=== PATIENT | male | born 1955 | race Caucasian/White ===

== ENCOUNTER 2018-01-08 09:28 | Emergency (ER) | payer MEDICAID ==
[~2018-01-08] VITALS: Ht 172.7 cm; Wt 99.8 kg
[~2018-01-08 09:28] MED LIST: HYDR12.55 PO; METH5TAB70 PO; METO50TA7 PO; NAPR-688 PO; OMEG1CAP8 PO; PRAV20TA PO
[2018-01-08 09:37] VITALS: BP_SYST 156
--- NOTE | 2018-01-08 09:43 | NUR ---
tPatient triaged and placed in waiting room. VSS and patient appears in no acute distress at this time. Accompanied by family, awaiting available bed, and MD notified of need for MSE.
--- NOTE | 2018-01-08 10:08 | NUR ---
Pt to bed 7
--- NOTE | 2018-01-08 10:08 | NUR ---
Pt c/o left knee pain x 1 week that radiates to calf. Pt able to move leg and knee without difficulty, just c/o pain per weight bearing. Denies trauma or recent injury, no deformity noted.
--- NOTE | 2018-01-08 10:40 | NUR ---
Dr. Evans at bedside for evaluation
[2018-01-08] MEDS ORDERED: KETOROLAC TROMETHAMINE 30 MG VIAL IM ONE (11:00)
--- NOTE | 2018-01-08 11:37 | NUR ---
Ultrasound at bedside
[2018-01-08 12:09] LABS: BASOPHILS % (AUTO) 0.7 % (0.0-2.0); EOSINOPHILS # (AUTO) 0.1 K/uL (0.0-0.4); EOSINOPHILS % (AUTO) 0.8 % (0.0-4.0); HEMATOCRIT 32.8 % (36-54); HEMOGLOBIN 11.3 g/dL (14.0-18.0); LYMPHOCYTES # (AUTO) 1.1 K/uL (1.0-5.5); LYMPHOCYTES % (AUTO) 15.5 % (20.5-51.5); MEAN CORPUSCULAR HEMOGLOBIN 30 pg (27-31); MEAN CORPUSCULAR HGB CONC 35 % (32-36); MEAN CORPUSCULAR VOLUME 87 fL (79.0-98.0); MONOCYTES # (AUTO) 0.4 K/uL (0.0-1.0); MONOCYTES % (AUTO) 6.3 % (1.7-9.3); NEUTROPHILS # (AUTO) 5.3 K/uL (1.8-7.7); NEUTROPHILS % (AUTO) 76.7 % (40.0-70.0); PLATELET COUNT (AUTO) 134 K/uL (130-430); RED BLOOD CELL COUNT(AUTO) 3.77 MIL/uL (4.2-6.2); RED CELL DISTRIBUTION WIDTH 12.9 % (9.0-15.0); WHITE BLOOD COUNT (AUTO) 6.9 K/uL (4.8-10.8)
--- NOTE | 2018-01-08 12:30 | NUR ---
No needs verbalized at this time.
[2018-01-08 12:56] LABS: CALCIUM 9.2 mg/dL (8.4-11.0); CREATININE 0.85 mg/dL (0.55-1.30); POTASSIUM 3.7 mmol/L (3.5-5.1)
[2018-01-08 13:00] LABS: ALBUMIN 3.4 g/dL (3.4-4.8); TOTAL BILIRUBIN 0.6 mg/dL (0.0-1.0)
--- NOTE | 2018-01-08 13:16 | NUR ---
Pt refused crutches. States that he will use his cane.
[2018-01-08 13:32] VITALS: BP_SYST 128
--- NOTE | 2018-01-08 13:32 | NUR ---
Patient given written and verbal discharge instructions and verbalizes understanding. ER MD discussed with patient the results and treatment provided. Patient in stable condition. ID arm band removed. Rx of Tramadol given. Patient educated on pain management and to follow up with PMD. Pain Scale 1/10. Opportunity for questions provided and answered. Medication side effect fact sheet provided.
== END 2018-01-08 13:32 | disposition home or self-care (01) ==
LOC: SED 09:28
DX: S86.912A Strain of unspecified muscle(s) and tendon(s) at lower leg level, left leg, initial encounter (principal); I10 Essential (primary) hypertension; E78.00 Pure hypercholesterolemia, unspecified; Z79.899 Other long term (current) drug therapy; X58.XXXA Exposure to other specified factors, initial encounter; Y93.89 Activity, other specified; Y92.89 Other specified places as the place of occurrence of the external cause; Y99.8 Other external cause status
CPT/HCPCS: 36415; 73564; 80053; 84550; 85025; 93971; 96372; 99285; J1885

== ENCOUNTER 2018-02-23 11:48 | Emergency (ER) | payer MEDICAID ==
[~2018-02-23] VITALS: Ht 182.9 cm; Wt 83.5 kg
[~2018-02-23 11:48] MED LIST changes: +FISH OIL 1,0001 EAC4 PO; -OMEG1CAP8 PO
[2018-02-23 12:10] VITALS: BP_SYST 116
[2018-02-23 12:38] LABS: BASOPHILS % (AUTO) 0.7 % (0.0-2.0); EOSINOPHILS % (AUTO) 0.4 % (0.0-4.0); HEMATOCRIT 33.7 % (36-54); HEMOGLOBIN 11.6 g/dL (14.0-18.0); LYMPHOCYTES # (AUTO) 0.7 K/uL (1.0-5.5); LYMPHOCYTES % (AUTO) 12.3 % (20.5-51.5); MEAN CORPUSCULAR HEMOGLOBIN 29 pg (27-31); MEAN CORPUSCULAR HGB CONC 34 % (32-36); MEAN CORPUSCULAR VOLUME 84 fL (79.0-98.0); MONOCYTES # (AUTO) 0.5 K/uL (0.0-1.0); MONOCYTES % (AUTO) 8.9 % (1.7-9.3); NEUTROPHILS # (AUTO) 4.7 K/uL (1.8-7.7); NEUTROPHILS % (AUTO) 77.7 % (40.0-70.0); RED CELL DISTRIBUTION WIDTH 14.5 % (9.0-15.0); WHITE BLOOD COUNT (AUTO) 5.9 K/uL (4.8-10.8)
[2018-02-23] MEDS ORDERED: NACL 0.9% 1,000 ML IV ONE ×3 (12:45→15:00)
[2018-02-23 12:55] LABS: ANION GAP 8 (5-15); CALCIUM 9.2 mg/dL (8.4-11.0); CHLORIDE 90 mmol/L (98-107); CREATININE 1.52 mg/dL (0.55-1.30); POTASSIUM 3.8 mmol/L (3.5-5.1); SODIUM SERUM 125 mmol/L (136-145); UREA NITROGEN, BLOOD 27 mg/dL (8-21)
[2018-02-23 12:59] LABS: ALANINE AMINOTRANSFERASE 18 U/L (12-78); ALBUMIN 3.1 g/dL (3.4-4.8); ASPARTATE AMINOTRANSFERASE 13 U/L (10-37); TOTAL BILIRUBIN 0.7 mg/dL (0.0-1.0)
[2018-02-23 13:17] LABS: GLUCOSE 749 mg/dL (70-99)
[2018-02-23 13:18] LABS: GFR AFRICAN AMERICAN 59 mL/min (>90)
[2018-02-23 13:29] LABS: PLATELET COUNT (AUTO) 93 K/uL (130-430)
[2018-02-23] MEDS ORDERED: INSULIN REGULAR, HUMAN 10 UNITS/0.1 ML INJ IVP ONE ×2 (13:45→15:00)
[2018-02-23] MEDS ORDERED: CLOP300T2 PO (13:59)
[2018-02-23] MEDS ORDERED: METH5TAB70 PO (13:59)
[2018-02-23] MEDS ORDERED: LIP40 PO (13:59)
[2018-02-23] MEDS ORDERED: HYDR12.585 PO (13:59)
[2018-02-23] MEDS ORDERED: ASA81 PO (13:59)
[2018-02-23 16:40] VITALS: BP_SYST 122
== END 2018-02-23 16:40 | disposition home or self-care (01) ==
LOC: SED 11:48
DX: E11.65 Type 2 diabetes mellitus with hyperglycemia (principal); R63.0 Anorexia; M54.2 Cervicalgia; I10 Essential (primary) hypertension; Z79.899 Other long term (current) drug therapy
CPT/HCPCS: 36415; 71045; 80053; 82550; 83880; 84484; 85025; 93005; 96361; 96374; 96376; 99285; J7030; J1815

== ENCOUNTER 2018-03-02 20:36 | Inpatient (IN) | payer MEDICAID ==
[~2018-03-02] VITALS: Ht 157.5 cm; Wt 89.8 kg
[~2018-03-02 20:36] MED LIST changes: +ASA81 PO; +CLOP300T2 PO; +HYDR12.585 PO; +LIP40 PO
[2018-03-02 20:45] VITALS: BP_SYST 112
[2018-03-02] MEDS ORDERED: NACL 0.9% 1,000 ML IV ONE ×3 (21:00→22:30)
[2018-03-02] MEDS ORDERED: ACETAMINOPHEN 500 MG TABLET PO ONE (21:00)
[2018-03-02 21:23] LABS: BASOPHILS % (AUTO) 0.3 % (0.0-2.0); EOSINOPHILS % (AUTO) 0.4 % (0.0-4.0); HEMATOCRIT 31.3 % (36-54); HEMOGLOBIN 10.8 g/dL (14.0-18.0); LYMPHOCYTES # (AUTO) 0.7 K/uL (1.0-5.5); LYMPHOCYTES % (AUTO) 11.1 % (20.5-51.5); MEAN CORPUSCULAR HEMOGLOBIN 29 pg (27-31); MEAN CORPUSCULAR HGB CONC 34 % (32-36); MEAN CORPUSCULAR VOLUME 83 fL (79.0-98.0); MONOCYTES # (AUTO) 0.4 K/uL (0.0-1.0); MONOCYTES % (AUTO) 5.9 % (1.7-9.3); NEUTROPHILS # (AUTO) 5.3 K/uL (1.8-7.7); NEUTROPHILS % (AUTO) 82.3 % (40.0-70.0); PLATELET COUNT (AUTO) 117 K/uL (130-430); RED BLOOD CELL COUNT(AUTO) 3.77 MIL/uL (4.2-6.2); RED CELL DISTRIBUTION WIDTH 14.2 % (9.0-15.0); WHITE BLOOD COUNT (AUTO) 6.4 K/uL (4.8-10.8)
[2018-03-02 21:29] LABS: CALCIUM 9.2 mg/dL (8.4-11.0); CREATININE 1.41 mg/dL (0.55-1.30); POTASSIUM 3.5 mmol/L (3.5-5.1)
[2018-03-02 21:32] LABS: BILIRUBIN,URINE NEGATIVE (NEGATIVE); CLARITY/URINE CLEAR (CLEAR); COLOR,URINE YELLOW (YELLOW); GLUCOSE,URINE NEGATIVE (NEGATIVE); KETONES,URINE TRACE (NEGATIVE); LEUKOCYTE ESTERASE ,URINE NEGATIVE (NEGATIVE); NITRITE, URINE NEGATIVE (NEGATIVE); PH,URINE 5.5 (5.0-8.0); PROTEIN URINE 1+ (NEGATIVE)
[2018-03-02 21:33] LABS: PROTHROMBIN TIME 10.4 SECS (9.5-12.5)
[2018-03-02 21:34] LABS: ALBUMIN 2.9 g/dL (3.4-4.8); TOTAL BILIRUBIN 0.6 mg/dL (0.0-1.0)
[2018-03-02 21:40] LABS: BLOOD, URINE TRACE (NEGATIVE)
[2018-03-02 21:52] LABS: BACTERIA,URINE RARE /HPF (None Seen); HYALINE CASTS, URINE 0-10 /LPF (None Seen); MUCUS,URINE 1+ /LPF (None Seen); WBC,URINE 0-3 /HPF (0-3)
[2018-03-02] MEDS ORDERED: MELO15TA13 PO (22:16)
[2018-03-02] MEDS ORDERED: METF1000 PO (22:16)
[2018-03-02] MEDS ORDERED: GLYB2.5T4 PO (22:16)
[2018-03-02] MEDS ORDERED: SOM350 PO (22:16)
[2018-03-02] MEDS ORDERED: TRAM1TAB33 PO (22:16)
[2018-03-02] MEDS ORDERED: NOREPINEPHRINE BITARTRATE 4 MG in NS 246 ML IV ONE (23:30)
[2018-03-02] MEDS ORDERED: NOREPINEPHRINE 4 MG/4 ML VIAL IV ONE (23:49)
[2018-03-03] VITALS (24 sets, daily range): BP systolic 92–138
[2018-03-03] MEDS ORDERED: PIPERACILLIN/TAZO 3.375 GM in NS 50 ML IV ONE (00:15)
[2018-03-03] MEDS ORDERED: NOREPINEPHRINE BITARTRATE 4 MG in NS 246 ML IV SCH (00:15)
[2018-03-03] MEDS ORDERED: D5NS 1,000 ML IV SCH (00:15)
[2018-03-03] MEDS ORDERED: VANCOMYCIN HCL 1,000 MG in NS 250 ML IV ONE (00:15)
[2018-03-03] MEDS ORDERED: VANCOMYCIN HCL 1000 MG/VIAL IV ONE (00:21)
[2018-03-03] MEDS ORDERED: PIPERACILLIN/TAZOBACTAM 3.375 GM/VIAL (ZOSYN) IV ONE ×2 (00:21→05:43)
[2018-03-03] MEDS ORDERED: HYDROCORTISONE SOD SUCC 100 MG/2 ML VIAL IVP SCH (01:00)
[2018-03-03] MEDS: HYDROCORTISONE SOD SUCC 100 MG/2 ML VIAL IVP SCH ×3 (06:02→21:35)
[2018-03-03] MEDS: NACL 0.9% 1,000 ML IV SCH ×3 (06:02→23:43)
[2018-03-03] MEDS: PIPERACILLIN/TAZO 3.375/DEX-IS 50 ML IV SCH ×4 (06:02→23:37)
[2018-03-03] MEDS: INSULIN REGULAR, HUMAN 100 UNITS/ML, 10 ML VIAL (novoLIN R) SUBCUT PRN ×4 (06:08→23:41)
[2018-03-03] MEDS ORDERED: CLOPIDOGREL BISULFATE 75 MG TABLET PO SCH (09:00)
[2018-03-03] MEDS: ASPIRIN 81 MG TAB.CHEW PO SCH (09:48)
[2018-03-03] MEDS ORDERED: VANCOMYCIN HCL 1 GM/NS PREMIX 250 ML IV SCH (13:00)
[2018-03-03] MEDS: GENTAMICIN SULFATE 160 MG in NS 100 ML IV SCH (14:39)
[2018-03-03] MEDS ORDERED: DOPamine PREMIX 250 ML IV PRN (18:15)
[2018-03-03] MEDS ORDERED: NACL 0.9% 1,000 ML IV ONE (18:15)
[2018-03-03] MEDS: NITROGLYCERIN 0.4 MG TAB.SUBL SL PRN ×2 (19:44→20:18)
[2018-03-03] MEDS ORDERED: NITROGLYCERIN 0.4 MG TAB.SUBL SL ONE (19:47)
[2018-03-03] MEDS ORDERED: ATROPINE SULFATE 0.5 MG/5 ML SYRINGE IVP PRN (20:00)
[2018-03-03] MEDS ORDERED: ONDANSETRON HCL 4 MG/2 ML VIAL ONE (20:41)
[2018-03-03] MEDS: DOPamine PREMIX 250 ML IV PRN (20:42)
[2018-03-03] MEDS ORDERED: ONDANSETRON HCL 4 MG/2 ML VIAL IVP PRN (20:45)
[2018-03-03] MEDS ORDERED: VANCOMYCIN HCL 1,250 MG in NS 250 ML IV SCH (22:00)
[2018-03-04] VITALS (25 sets, daily range): BP systolic 111–157
[2018-03-04] MEDS: HYDROCORTISONE SOD SUCC 100 MG/2 ML VIAL IVP SCH ×3 (06:00→21:36)
[2018-03-04] MEDS: PIPERACILLIN/TAZO 3.375/DEX-IS 50 ML IV SCH ×3 (06:01→18:27)
[2018-03-04] MEDS: NACL 0.9% 1,000 ML IV SCH ×2 (06:12→12:54)
[2018-03-04] MEDS: INSULIN REGULAR, HUMAN 100 UNITS/ML, 10 ML VIAL (novoLIN R) SUBCUT PRN ×4 (06:17→21:42)
[2018-03-04] MEDS: MORPHINE 2 MG/ML INJ. SYRINGE IVP PRN ×2 (06:24→19:40)
[2018-03-04 07:11] LABS: ALBUMIN 2.3 g/dL (3.4-4.8); CALCIUM 8.7 mg/dL (8.4-11.0); CREATININE 0.94 mg/dL (0.55-1.30); THYROID STIMULATING HORMONE 0.13 uIu/mL (0.34-4.82); TOTAL BILIRUBIN 0.4 mg/dL (0.0-1.0)
[2018-03-04 07:20] LABS: BASOPHILS % (AUTO) 0.2 % (0.0-2.0); HEMATOCRIT 34.2 % (36-54); HEMOGLOBIN 11.7 g/dL (14.0-18.0); LYMPHOCYTES % (AUTO) 12.7 % (20.5-51.5); MEAN CORPUSCULAR HEMOGLOBIN 29 pg (27-31); MEAN CORPUSCULAR HGB CONC 34 % (32-36); MEAN CORPUSCULAR VOLUME 84 fL (79.0-98.0); MONOCYTES # (AUTO) 0.4 K/uL (0.0-1.0); MONOCYTES % (AUTO) 5.7 % (1.7-9.3); NEUTROPHILS # (AUTO) 6.2 K/uL (1.8-7.7); NEUTROPHILS % (AUTO) 81.4 % (40.0-70.0); PLATELET COUNT (AUTO) 163 K/uL (130-430); RED BLOOD CELL COUNT(AUTO) 4.06 MIL/uL (4.2-6.2); RED CELL DISTRIBUTION WIDTH 13.9 % (9.0-15.0); WHITE BLOOD COUNT (AUTO) 7.6 K/uL (4.8-10.8)
[2018-03-04] MEDS: ASPIRIN 81 MG TAB.CHEW PO SCH (09:39)
[2018-03-04] MEDS ORDERED: POTASSIUM CHLORIDE 20 MEQ TAB.PRT.SR PO ONE (11:45)
[2018-03-04] MEDS ORDERED: BUPIVACAINE /PF 0.25% 30 ML VIAL INJ ONE (12:15)
[2018-03-04] MEDS ORDERED: methylPREDNISolone ACETATE 40 MG/ML IM ONE (12:15)
[2018-03-04] MEDS ORDERED: methylPREDNISolone ACETATE 80 MG/ML IM ONE (12:15)
[2018-03-04] MEDS ORDERED: DOPamine PREMIX 250 ML IV ONE (14:11)
[2018-03-04] MEDS: GENTAMICIN SULFATE 160 MG in NS 100 ML IV SCH (15:28)
[2018-03-05] VITALS (24 sets, daily range): BP systolic 103–161
[2018-03-05] MEDS: PIPERACILLIN/TAZO 3.375/DEX-IS 50 ML IV SCH ×2 (00:07→05:30)
[2018-03-05] MEDS: NACL 0.9% 1,000 ML IV SCH ×2 (05:31→16:48)
[2018-03-05] MEDS: HYDROCORTISONE SOD SUCC 100 MG/2 ML VIAL IVP SCH (05:33)
[2018-03-05 06:46] LABS: CALCIUM 9.1 mg/dL (8.4-11.0); CREATININE 0.85 mg/dL (0.55-1.30)
[2018-03-05 06:54] LABS: ALBUMIN 2.5 g/dL (3.4-4.8); TOTAL BILIRUBIN 0.3 mg/dL (0.0-1.0)
[2018-03-05] MEDS: INSULIN REGULAR, HUMAN 100 UNITS/ML, 10 ML VIAL (novoLIN R) SUBCUT PRN ×4 (06:56→20:08)
[2018-03-05 06:57] LABS: POTASSIUM 2.6 mmol/L (3.5-5.1)
[2018-03-05 07:12] LABS: BASOPHILS # (AUTO) 0.1 K/uL (0.0-0.2); BASOPHILS % (AUTO) 0.7 % (0.0-2.0); EOSINOPHILS % (AUTO) 0.1 % (0.0-4.0); HEMATOCRIT 33.8 % (36-54); HEMOGLOBIN 11.7 g/dL (14.0-18.0); LYMPHOCYTES # (AUTO) 1.1 K/uL (1.0-5.5); LYMPHOCYTES % (AUTO) 13.7 % (20.5-51.5); MEAN CORPUSCULAR HEMOGLOBIN 29 pg (27-31); MEAN CORPUSCULAR HGB CONC 35 % (32-36); MEAN CORPUSCULAR VOLUME 84 fL (79.0-98.0); MONOCYTES # (AUTO) 0.5 K/uL (0.0-1.0); MONOCYTES % (AUTO) 5.7 % (1.7-9.3); NEUTROPHILS # (AUTO) 6.4 K/uL (1.8-7.7); NEUTROPHILS % (AUTO) 79.8 % (40.0-70.0); PLATELET COUNT (AUTO) 192 K/uL (130-430); RED BLOOD CELL COUNT(AUTO) 4.02 MIL/uL (4.2-6.2); WHITE BLOOD COUNT (AUTO) 8.1 K/uL (4.8-10.8)
[2018-03-05] MEDS ORDERED: POTASSIUM CHLORIDE 20 MEQ TAB.PRT.SR PO ONE (07:30)
[2018-03-05] MEDS: MORPHINE 2 MG/ML INJ. SYRINGE IVP PRN ×3 (07:41→20:07)
[2018-03-05] MEDS: DOPamine PREMIX 250 ML IV PRN (07:41)
[2018-03-05] MEDS: ASPIRIN 81 MG TAB.CHEW PO SCH (09:03)
[2018-03-05] MEDS: POTASSIUM CHLORIDE 20 MEQ TAB.PRT.SR PO SCH ×2 (11:20→20:07)
[2018-03-05] MEDS: GENTAMICIN SULFATE 160 MG in NS 100 ML IV SCH (14:47)
[2018-03-06] VITALS (13 sets, daily range): BP systolic 96–130
[2018-03-06] MEDS: NACL 0.9% 1,000 ML IV SCH ×3 (04:51→23:50)
[2018-03-06 05:47] LABS: BASOPHILS % (AUTO) 0.5 % (0.0-2.0); EOSINOPHILS % (AUTO) 0.4 % (0.0-4.0); HEMATOCRIT 29.5 % (36-54); HEMOGLOBIN 9.8 g/dL (14.0-18.0); LYMPHOCYTES # (AUTO) 1.1 K/uL (1.0-5.5); LYMPHOCYTES % (AUTO) 20.3 % (20.5-51.5); MEAN CORPUSCULAR HEMOGLOBIN 28 pg (27-31); MEAN CORPUSCULAR HGB CONC 33 % (32-36); MEAN CORPUSCULAR VOLUME 84 fL (79.0-98.0); MONOCYTES # (AUTO) 0.3 K/uL (0.0-1.0); MONOCYTES % (AUTO) 6.5 % (1.7-9.3); NEUTROPHILS % (AUTO) 72.3 % (40.0-70.0); PLATELET COUNT (AUTO) 152 K/uL (130-430); RED CELL DISTRIBUTION WIDTH 13.9 % (9.0-15.0)
[2018-03-06 05:59] LABS: WHITE BLOOD COUNT (AUTO) 5.4 K/uL (4.8-10.8)
[2018-03-06] MEDS: INSULIN REGULAR, HUMAN 100 UNITS/ML, 10 ML VIAL (novoLIN R) SUBCUT PRN ×3 (06:03→20:41)
[2018-03-06 06:16] LABS: CALCIUM 8.8 mg/dL (8.4-11.0); CREATININE 1.01 mg/dL (0.55-1.30); POTASSIUM 4.4 mmol/L (3.5-5.1); TOTAL BILIRUBIN 0.5 mg/dL (0.0-1.0)
[2018-03-06 06:17] LABS: ALBUMIN 2.2 g/dL (3.4-4.8)
[2018-03-06] MEDS: POTASSIUM CHLORIDE 20 MEQ TAB.PRT.SR PO SCH ×2 (08:15→20:39)
[2018-03-06] MEDS: ASPIRIN 81 MG TAB.CHEW PO SCH (08:15)
[2018-03-06] MEDS: MORPHINE 2 MG/ML INJ. SYRINGE IVP PRN (08:40)
[2018-03-06] MEDS ORDERED: traMADol HCL HCL 50 MG TABLET (ULTRAM) PO PRN (10:00)
[2018-03-06] MEDS: GENTAMICIN SULFATE 160 MG in NS 100 ML IV SCH (14:32)
[2018-03-07 01:07] VITALS: BP_SYST 117
[2018-03-07 07:10] LABS: ALBUMIN 2.3 g/dL (3.4-4.8); CALCIUM 8.6 mg/dL (8.4-11.0); CREATININE 0.9 mg/dL (0.55-1.30); POTASSIUM 4.4 mmol/L (3.5-5.1); TOTAL BILIRUBIN 0.3 mg/dL (0.0-1.0)
[2018-03-07 08:05] VITALS: BP_SYST 137
[2018-03-07] MEDS: POTASSIUM CHLORIDE 20 MEQ TAB.PRT.SR PO SCH ×2 (09:35→20:18)
[2018-03-07] MEDS: ASPIRIN 81 MG TAB.CHEW PO SCH (09:36)
[2018-03-07] MEDS: NACL 0.9% 1,000 ML IV SCH ×3 (09:36→23:43)
[2018-03-07 11:52] VITALS: BP_SYST 134
[2018-03-07 16:03] VITALS: BP_SYST 111
[2018-03-07] MEDS: GENTAMICIN SULFATE 160 MG in NS 100 ML IV SCH (17:34)
[2018-03-07] MEDS: INSULIN REGULAR, HUMAN 100 UNITS/ML, 10 ML VIAL (novoLIN R) SUBCUT PRN ×2 (17:40→20:21)
[2018-03-07 18:19] LABS: HEMOGLOBIN 10.3 g/dL (14.0-18.0); MEAN CORPUSCULAR HEMOGLOBIN 28 pg (27-31); MEAN CORPUSCULAR HGB CONC 33 % (32-36); MEAN CORPUSCULAR VOLUME 84 fL (79.0-98.0); PLATELET COUNT (AUTO) 171 K/uL (130-430); RED CELL DISTRIBUTION WIDTH 14.5 % (9.0-15.0); WHITE BLOOD COUNT (AUTO) 5.7 K/uL (4.8-10.8)
[2018-03-07 18:20] LABS: BASOPHILS % (AUTO) 0.4 % (0.0-2.0); EOSINOPHILS # (AUTO) 0.1 K/uL (0.0-0.4); EOSINOPHILS % (AUTO) 0.9 % (0.0-4.0); LYMPHOCYTES # (AUTO) 1.1 K/uL (1.0-5.5); LYMPHOCYTES % (AUTO) 18.9 % (20.5-51.5); MONOCYTES # (AUTO) 0.4 K/uL (0.0-1.0); MONOCYTES % (AUTO) 7.4 % (1.7-9.3); NEUTROPHILS # (AUTO) 4.1 K/uL (1.8-7.7); NEUTROPHILS % (AUTO) 72.4 % (40.0-70.0)
[2018-03-07 20:00] VITALS: BP_SYST 120
[2018-03-08] VITALS: BP_SYST 118
[2018-03-08] MEDS: INSULIN REGULAR, HUMAN 100 UNITS/ML, 10 ML VIAL (novoLIN R) SUBCUT PRN ×3 (06:08→22:01)
[2018-03-08] MEDS: NACL 0.9% 1,000 ML IV SCH (07:43)
[2018-03-08 08:00] VITALS: BP_SYST 113
[2018-03-08] MEDS: MORPHINE 2 MG/ML INJ. SYRINGE IVP PRN ×2 (08:57→17:58)
[2018-03-08] MEDS: POTASSIUM CHLORIDE 20 MEQ TAB.PRT.SR PO SCH (08:58)
[2018-03-08] MEDS: ASPIRIN 81 MG TAB.CHEW PO SCH (08:58)
[2018-03-08 12:25] VITALS: BP_SYST 120
[2018-03-08] MEDS: GENTAMICIN SULFATE 160 MG in NS 100 ML IV SCH (15:15)
[2018-03-08 16:25] VITALS: BP_SYST 100
[2018-03-08] MEDS: metFORMIN HCL 500 MG TABLET PO SCH (17:56)
[2018-03-08 20:15] VITALS: BP_SYST 120
[2018-03-08] MEDS: ACETAMINOPHEN 325 MG TABLET PO PRN (21:27)
[2018-03-09 00:20] VITALS: BP_SYST 108
[2018-03-09 07:01] LABS: CALCIUM 9.5 mg/dL (8.4-11.0); CREATININE 0.93 mg/dL (0.55-1.30); POTASSIUM 3.9 mmol/L (3.5-5.1)
[2018-03-09 08:00] VITALS: BP_SYST 106
[2018-03-09] MEDS: metFORMIN HCL 500 MG TABLET PO SCH ×2 (09:55→18:10)
[2018-03-09] MEDS: ASPIRIN 81 MG TAB.CHEW PO SCH (09:55)
[2018-03-09 11:17] VITALS: BP_SYST 125
[2018-03-09] MEDS: GENTAMICIN SULFATE 160 MG in NS 100 ML IV SCH (15:08)
[2018-03-09 15:13] VITALS: BP_SYST 124
[2018-03-09] MEDS: ACETAMINOPHEN 325 MG TABLET PO PRN (16:07)
[2018-03-09 20:32] VITALS: BP_SYST 111
[2018-03-10 00:50] VITALS: BP_SYST 107
[2018-03-10] MEDS: ASPIRIN 81 MG TAB.CHEW PO SCH (08:23)
[2018-03-10] MEDS: metFORMIN HCL 500 MG TABLET PO SCH ×2 (08:23→17:22)
[2018-03-10 08:45] VITALS: BP_SYST 120
[2018-03-10 11:17] VITALS: BP_SYST 102
[2018-03-10] MEDS: INSULIN REGULAR, HUMAN 100 UNITS/ML, 10 ML VIAL (novoLIN R) SUBCUT PRN (11:59)
[2018-03-10 15:00] VITALS: BP_SYST 107
[2018-03-10 19:30] VITALS: BP_SYST 110
[2018-03-10 20:00] VITALS: BP_SYST 110
[2018-03-11] VITALS: BP_SYST 99
[2018-03-11 08:00] VITALS: BP_SYST 100
[2018-03-11] MEDS: metFORMIN HCL 500 MG TABLET PO SCH ×2 (08:05→18:09)
[2018-03-11] MEDS: ASPIRIN 81 MG TAB.CHEW PO SCH (09:14)
[2018-03-11] MEDS: INSULIN REGULAR, HUMAN 100 UNITS/ML, 10 ML VIAL (novoLIN R) SUBCUT PRN (11:37)
[2018-03-11 12:00] VITALS: BP_SYST 94
[2018-03-11 16:26] VITALS: BP_SYST 99
[2018-03-11 20:00] VITALS: BP_SYST 113
[2018-03-11] MEDS: traMADol HCL HCL 50 MG TABLET (ULTRAM) PO PRN (21:06)
[2018-03-12 01:10] VITALS: BP_SYST 107
[2018-03-12 04:55] VITALS: BP_SYST 125
[2018-03-12 07:10] LABS: BASOPHILS % (AUTO) 0.8 % (0.0-2.0); EOSINOPHILS # (AUTO) 0.1 K/uL (0.0-0.4); EOSINOPHILS % (AUTO) 1.1 % (0.0-4.0); HEMATOCRIT 29.8 % (36-54); HEMOGLOBIN 10.3 g/dL (14.0-18.0); LYMPHOCYTES # (AUTO) 1.5 K/uL (1.0-5.5); LYMPHOCYTES % (AUTO) 25.2 % (20.5-51.5); MEAN CORPUSCULAR HEMOGLOBIN 29 pg (27-31); MEAN CORPUSCULAR HGB CONC 35 % (32-36); MEAN CORPUSCULAR VOLUME 84 fL (79.0-98.0); MONOCYTES # (AUTO) 0.6 K/uL (0.0-1.0); MONOCYTES % (AUTO) 10.3 % (1.7-9.3); NEUTROPHILS # (AUTO) 3.8 K/uL (1.8-7.7); NEUTROPHILS % (AUTO) 62.6 % (40.0-70.0); PLATELET COUNT (AUTO) 142 K/uL (130-430); RED BLOOD CELL COUNT(AUTO) 3.54 MIL/uL (4.2-6.2); RED CELL DISTRIBUTION WIDTH 14.7 % (9.0-15.0)
[2018-03-12 07:22] LABS: CALCIUM 9.4 mg/dL (8.4-11.0); CREATININE 1.19 mg/dL (0.55-1.30); POTASSIUM 3.7 mmol/L (3.5-5.1)
[2018-03-12 08:04] VITALS: BP_SYST 111
[2018-03-12] MEDS: metFORMIN HCL 500 MG TABLET PO SCH ×2 (08:23→17:41)
[2018-03-12] MEDS: ASPIRIN 81 MG TAB.CHEW PO SCH (08:23)
[2018-03-12 10:38] LABS: ERYTHROCYTE SEDIMENTATION RATE 69 MM/HR (0-15)
[2018-03-12 12:35] VITALS: BP_SYST 118
[2018-03-12] MEDS: traMADol HCL HCL 50 MG TABLET (ULTRAM) PO PRN (13:38)
[2018-03-12 16:39] VITALS: BP_SYST 106
[2018-03-12 20:00] VITALS: BP_SYST 104
[2018-03-13 00:30] VITALS: BP_SYST 104
[2018-03-13 07:41] VITALS: BP_SYST 112
[2018-03-13] MEDS: ASPIRIN 81 MG TAB.CHEW PO SCH (08:25)
[2018-03-13] MEDS: metFORMIN HCL 500 MG TABLET PO SCH (08:25)
[2018-03-13 09:53] VITALS: BP_SYST 112
[2018-03-13 16:44] VITALS: BP_SYST 112
[2018-03-13] MEDS ORDERED: AMOX500C2 PO (18:31)
[2018-03-13] MEDS ORDERED: AMOXICILLIN 500 MG CAPSULE PO SCH (21:00)
== END 2018-03-13 18:10 | disposition home or self-care (01) | DRG 720 ==
LOC: SED 20:36 → SIC 03-03 00:10 → STU 03-06 10:30
PROVIDERS: ADMIT Internal Medicine Hospice and Palliative Medicine; ATTEND Internal Medicine Hospice and Palliative Medicine
PROC: 0S9C3ZZ Drainage of Right Knee Joint, Percutaneous Approach (ICD-10-PCS; principal; 2018-03-04)
DX: A40.8 Other streptococcal sepsis (principal); R65.21 Severe sepsis with septic shock; E43 Unspecified severe protein-calorie malnutrition; N17.9 Acute kidney failure, unspecified; E11.22 Type 2 diabetes mellitus with diabetic chronic kidney disease; I44.1 Atrioventricular block, second degree; M00.9 Pyogenic arthritis, unspecified; I38 Endocarditis, valve unspecified; N18.9 Chronic kidney disease, unspecified; I12.9 Hypertensive chronic kidney disease with stage 1 through stage 4 chronic kidney disease, or unspecified chronic kidney disease; N10 Acute pyelonephritis; E78.00 Pure hypercholesterolemia, unspecified; M17.11 Unilateral primary osteoarthritis, right knee; I25.10 Atherosclerotic heart disease of native coronary artery without angina pectoris; I25.2 Old myocardial infarction; Z95.5 Presence of coronary angioplasty implant and graft; Z95.2 Presence of prosthetic heart valve; Z87.891 Personal history of nicotine dependence; Z86.73 Personal history of transient ischemic attack (TIA), and cerebral infarction without residual deficits; Z79.02 Long term (current) use of antithrombotics/antiplatelets; Z79.899 Other long term (current) drug therapy; Z79.82 Long term (current) use of aspirin
CPT/HCPCS: 36415; 71045; 73564; 76700-TC; 80048; 80053; 80061; 80170-TC; 81000-TC; 82962; 83605; 83735-TC; 83880; 84443-TC; 84484; 85025; 85610-TC; 85651-TC; 85730-TC; 87040-TC; 87070-TC; 87081; 87086; 87186-TC; 93005; 93306; 96361; 96365; 96366; 96367; 97110-GP; 97116-GP; 97530-GP; 97535-GP; 99291; J0461; J0696; J1030; J1040; J1265; J1580; J1720; J1815; J2270; J2405; J2543; J3370; J3490; J7030; J7040; J7042; J7050; J7060

== ENCOUNTER 2018-09-18 11:19 | Inpatient (IN) | payer MEDICAID ==
[~2018-09-18] VITALS: Ht 167.6 cm; Wt 97.3 kg
[~2018-09-18 11:19] MED LIST changes: +AMOX500C2 PO; -FISH OIL 1,0001 EAC4 PO; -HYDR12.55 PO; -HYDR12.585 PO; +MELO15TA13 PO; +METF1000 PO; -METH5TAB70 PO; -METO50TA7 PO; -NAPR-688 PO; -PRAV20TA PO; +SOM350 PO; +TRAM-350 PO
[2018-09-18 11:22] VITALS: BP_SYST 142
[2018-09-18 12:18] LABS: HEMATOCRIT 36.3 % (36-54); MEAN CORPUSCULAR HEMOGLOBIN 30 pg (27-31); MEAN CORPUSCULAR HGB CONC 33 % (32-36); MEAN CORPUSCULAR VOLUME 89 fL (79.0-98.0); RED BLOOD CELL COUNT(AUTO) 4.06 MIL/uL (4.2-6.2); WHITE BLOOD COUNT (AUTO) 5.8 K/uL (4.8-10.8)
[2018-09-18 12:19] LABS: BASOPHILS % (AUTO) 0.4 % (0.0-2.0); EOSINOPHILS % (AUTO) 0.9 % (0.0-4.0); LYMPHOCYTES # (AUTO) 0.7 K/uL (1.0-5.5); LYMPHOCYTES % (AUTO) 11.9 % (20.5-51.5); MONOCYTES # (AUTO) 0.3 K/uL (0.0-1.0); MONOCYTES % (AUTO) 4.7 % (1.7-9.3); NEUTROPHILS # (AUTO) 4.8 K/uL (1.8-7.7); NEUTROPHILS % (AUTO) 82.4 % (40.0-70.0); PLATELET COUNT (AUTO) 93 K/uL (130-430); RED CELL DISTRIBUTION WIDTH 15.2 % (9.0-15.0)
[2018-09-18 12:30] LABS: CALCIUM 9.2 mg/dL (8.4-11.0); CREATININE 0.93 mg/dL (0.55-1.30); POTASSIUM 3.7 mmol/L (3.5-5.1)
[2018-09-18 12:33] LABS: INR 1.1 (0.80-1.20)
[2018-09-18 12:39] LABS: ALBUMIN 4.4 g/dL (3.4-4.8)
[2018-09-18] MEDS ORDERED: ATOR40TA68 PO (14:14)
[2018-09-18] MEDS ORDERED: METF-510 PO (14:14)
[2018-09-18] MEDS ORDERED: LISI-209 PO (14:14)
[2018-09-18] MEDS ORDERED: ASA81 PO (14:14)
[2018-09-18] MEDS ORDERED: ACET-73 PO (14:14)
[2018-09-18] MEDS ORDERED: METH5TAB70 PO (14:14)
[2018-09-18] MEDS ORDERED: CLOP300T2 PO (14:14)
[2018-09-18 14:36] VITALS: BP_SYST 144
[2018-09-18] MEDS ORDERED: FUROSEMIDE 20 MG/2 ML VIAL IVP ONE (15:15)
[2018-09-18] MEDS ORDERED: ASPIRIN 81 MG TAB.CHEW PO ONE (15:15)
[2018-09-18] MEDS ORDERED: ACETAMINOPHEN 500 MG TABLET PO PRN (15:15)
[2018-09-18] MEDS ORDERED: DEXTROSE 50% JECT 50 ML DISP.SYRIN IVP PRN (15:15)
[2018-09-18 16:04] VITALS: BP_SYST 144
[2018-09-18 20:43] LABS: BILIRUBIN,URINE NEGATIVE (NEGATIVE); CLARITY/URINE CLEAR (CLEAR); COLOR,URINE YELLOW (YELLOW); GLUCOSE,URINE NEGATIVE (NEGATIVE); KETONES,URINE NEGATIVE (NEGATIVE); LEUKOCYTE ESTERASE ,URINE NEGATIVE (NEGATIVE); NITRITE, URINE NEGATIVE (NEGATIVE); PROTEIN URINE NEGATIVE (NEGATIVE); UROBILINOGEN,URINE 0.2 (0.2-1.0)
[2018-09-18 20:48] LABS: BLOOD, URINE TRACE (NEGATIVE)
[2018-09-18 20:49] LABS: BACTERIA,URINE None Seen /HPF (None Seen); MUCUS,URINE None Seen /LPF (None Seen); RBC,URINE NONE SEEN /HPF (0-3); WBC,URINE 0-3 /HPF (0-3)
[2018-09-18 21:25] VITALS: BP_SYST 128
[2018-09-18] MEDS: ATORVASTATIN 20 MG TABLET PO SCH (21:26)
[2018-09-18] MEDS: INSULIN REGULAR, HUMAN 100 UNITS/ML, 10 ML VIAL (novoLIN R) SUBCUT PRN (21:29)
[2018-09-18] MEDS ORDERED: ENOXAPARIN SODIUM 100 MG/ML SYRINGE SUBCUT SCH ×2 (21:30→22:00)
[2018-09-18 22:30] VITALS: BP_SYST 111
[2018-09-18] MEDS: NITROGLYCERIN 0.4 MG TAB.SUBL SL PRN ×2 (22:32→22:44)
[2018-09-19 00:14] VITALS: BP_SYST 109
[2018-09-19 04:15] VITALS: BP_SYST 115
[2018-09-19] MEDS: NITROGLYCERIN 0.4 MG TAB.SUBL SL PRN ×5 (04:16→15:46)
[2018-09-19] MEDS: INSULIN REGULAR, HUMAN 100 UNITS/ML, 10 ML VIAL (novoLIN R) SUBCUT PRN ×2 (06:10→21:42)
[2018-09-19 07:37] LABS: CALCIUM 8.9 mg/dL (8.4-11.0); CREATININE 1.09 mg/dL (0.55-1.30); POTASSIUM 3.9 mmol/L (3.5-5.1)
[2018-09-19 07:51] LABS: ALBUMIN 3.7 g/dL (3.4-4.8); THYROID STIMULATING HORMONE 5.29 uIu/mL (0.36-3.74); TOTAL BILIRUBIN 1.1 mg/dL (0.0-1.0)
[2018-09-19 07:52] LABS: HEMATOCRIT 34.2 % (36-54); HEMOGLOBIN 11.3 g/dL (14.0-18.0); MEAN CORPUSCULAR HEMOGLOBIN 30 pg (27-31); MEAN CORPUSCULAR HGB CONC 33 % (32-36); MEAN CORPUSCULAR VOLUME 89 fL (79.0-98.0); RED BLOOD CELL COUNT(AUTO) 3.83 MIL/uL (4.2-6.2); RED CELL DISTRIBUTION WIDTH 15.3 % (9.0-15.0); WHITE BLOOD COUNT (AUTO) 4.9 K/uL (4.8-10.8)
[2018-09-19 07:53] LABS: BASOPHILS % (AUTO) 0.5 % (0.0-2.0); EOSINOPHILS # (AUTO) 0.1 K/uL (0.0-0.4); EOSINOPHILS % (AUTO) 1.5 % (0.0-4.0); LYMPHOCYTES # (AUTO) 1.1 K/uL (1.0-5.5); LYMPHOCYTES % (AUTO) 21.6 % (20.5-51.5); MONOCYTES # (AUTO) 0.3 K/uL (0.0-1.0); MONOCYTES % (AUTO) 7.1 % (1.7-9.3); NEUTROPHILS # (AUTO) 3.4 K/uL (1.8-7.7); NEUTROPHILS % (AUTO) 69.3 % (40.0-70.0); PLATELET COUNT (AUTO) 83 K/uL (130-430)
[2018-09-19] MEDS: METHIMAZOLE 5 MG TABLET PO SCH (08:47)
[2018-09-19] MEDS: FUROSEMIDE 20 MG TABLET PO SCH (08:48)
[2018-09-19] MEDS: CLOPIDOGREL BISULFATE 75 MG TABLET PO SCH (08:48)
[2018-09-19] MEDS: ASPIRIN 81 MG TAB.CHEW PO SCH (08:48)
[2018-09-19] MEDS: LISINOPRIL 5 MG TABLET PO SCH (08:49)
[2018-09-19] MEDS: ENOXAPARIN SODIUM 100 MG/ML SYRINGE SUBCUT SCH ×2 (08:50→21:38)
[2018-09-19 08:53] VITALS: BP_SYST 117
[2018-09-19] MEDS ORDERED: FUROSEMIDE 20 MG/2 ML VIAL IVP SCH (09:00)
[2018-09-19] MEDS ORDERED: PANTOPRAZOLE SODIUM 40 MG TAB PO ONE (11:00)
[2018-09-19] MEDS ORDERED: MAG-AL HYDROX/SIMETH 30 ML UDC PO ONE (11:00)
[2018-09-19] MEDS ORDERED: ACETAMINOPHEN 325 MG TABLET PO PRN (11:00)
[2018-09-19 11:26] VITALS: BP_SYST 109
[2018-09-19] MEDS: traMADol HCL HCL 50 MG TABLET (ULTRAM) PO SCH ×3 (12:04→23:16)
[2018-09-19 15:14] VITALS: BP_SYST 109
[2018-09-19 21:31] VITALS: BP_SYST 133
[2018-09-19] MEDS: ATORVASTATIN 20 MG TABLET PO SCH (21:33)
[2018-09-19] MEDS: PANTOPRAZOLE SODIUM 40 MG TAB PO SCH (21:33)
[2018-09-20 01:57] VITALS: BP_SYST 118
[2018-09-20] MEDS: traMADol HCL HCL 50 MG TABLET (ULTRAM) PO SCH ×4 (05:00→23:03)
[2018-09-20] MEDS: INSULIN REGULAR, HUMAN 100 UNITS/ML, 10 ML VIAL (novoLIN R) SUBCUT PRN ×2 (06:34→21:12)
[2018-09-20 07:04] LABS: CALCIUM 8.9 mg/dL (8.4-11.0); CREATININE 1.32 mg/dL (0.55-1.30); POTASSIUM 3.9 mmol/L (3.5-5.1)
[2018-09-20 08:00] VITALS: BP_SYST 135
[2018-09-20 08:39] LABS: WHITE BLOOD COUNT (AUTO) 4.8 K/uL (4.8-10.8)
[2018-09-20 08:40] LABS: HEMATOCRIT 34.8 % (36-54); HEMOGLOBIN 11.4 g/dL (14.0-18.0); MEAN CORPUSCULAR HEMOGLOBIN 29 pg (27-31); MEAN CORPUSCULAR HGB CONC 33 % (32-36); MEAN CORPUSCULAR VOLUME 89 fL (79.0-98.0); PLATELET COUNT (AUTO) 84 K/uL (130-430); RED CELL DISTRIBUTION WIDTH 15.5 % (9.0-15.0)
[2018-09-20 08:41] LABS: BASOPHILS % (AUTO) 0.5 % (0.0-2.0); EOSINOPHILS # (AUTO) 0.1 K/uL (0.0-0.4); EOSINOPHILS % (AUTO) 1.4 % (0.0-4.0); LYMPHOCYTES % (AUTO) 20.1 % (20.5-51.5); MONOCYTES # (AUTO) 0.3 K/uL (0.0-1.0); MONOCYTES % (AUTO) 5.8 % (1.7-9.3); NEUTROPHILS # (AUTO) 3.4 K/uL (1.8-7.7); NEUTROPHILS % (AUTO) 72.2 % (40.0-70.0)
[2018-09-20] MEDS: MAG-AL HYDROX/SIMETH 30 ML UDC PO PRN (08:44)
[2018-09-20] MEDS: FUROSEMIDE 20 MG TABLET PO SCH (08:45)
[2018-09-20] MEDS: LISINOPRIL 5 MG TABLET PO SCH (08:45)
[2018-09-20] MEDS: ASPIRIN 81 MG TAB.CHEW PO SCH (08:45)
[2018-09-20] MEDS: CLOPIDOGREL BISULFATE 75 MG TABLET PO SCH (08:46)
[2018-09-20] MEDS: PANTOPRAZOLE SODIUM 40 MG TAB PO SCH ×2 (08:46→21:13)
[2018-09-20] MEDS: ENOXAPARIN SODIUM 100 MG/ML SYRINGE SUBCUT SCH ×2 (08:49→21:14)
[2018-09-20] MEDS: METHIMAZOLE 5 MG TABLET PO SCH (11:01)
[2018-09-20 11:31] VITALS: BP_SYST 133
[2018-09-20 15:20] VITALS: BP_SYST 136
[2018-09-20 20:00] VITALS: BP_SYST 137
[2018-09-20] MEDS ORDERED: ONDANSETRON 4 MG ODT TAB PO PRN (20:00)
[2018-09-20] MEDS: ATORVASTATIN 20 MG TABLET PO SCH (21:12)
[2018-09-21 00:26] VITALS: BP_SYST 115
[2018-09-21] MEDS: INSULIN REGULAR, HUMAN 100 UNITS/ML, 10 ML VIAL (novoLIN R) SUBCUT PRN (06:10)
[2018-09-21] MEDS: traMADol HCL HCL 50 MG TABLET (ULTRAM) PO SCH ×3 (06:10→17:30)
[2018-09-21 07:30] LABS: CALCIUM 9.5 mg/dL (8.4-11.0); CREATININE 1.54 mg/dL (0.55-1.30); POTASSIUM 4.5 mmol/L (3.5-5.1)
[2018-09-21 08:06] LABS: HEMATOCRIT 39.2 % (36-54); HEMOGLOBIN 12.6 g/dL (14.0-18.0); MEAN CORPUSCULAR HEMOGLOBIN 29 pg (27-31); MEAN CORPUSCULAR HGB CONC 32 % (32-36); MEAN CORPUSCULAR VOLUME 90 fL (79.0-98.0); PLATELET COUNT (AUTO) 118 K/uL (130-430); RED BLOOD CELL COUNT(AUTO) 4.36 MIL/uL (4.2-6.2); RED CELL DISTRIBUTION WIDTH 15.3 % (9.0-15.0); WHITE BLOOD COUNT (AUTO) 7.5 K/uL (4.8-10.8)
[2018-09-21 08:07] LABS: BASOPHILS % (AUTO) 0.4 % (0.0-2.0); EOSINOPHILS % (AUTO) 0.2 % (0.0-4.0); LYMPHOCYTES # (AUTO) 1.3 K/uL (1.0-5.5); LYMPHOCYTES % (AUTO) 17.3 % (20.5-51.5); MONOCYTES # (AUTO) 0.4 K/uL (0.0-1.0); MONOCYTES % (AUTO) 5.7 % (1.7-9.3); NEUTROPHILS # (AUTO) 5.7 K/uL (1.8-7.7); NEUTROPHILS % (AUTO) 76.4 % (40.0-70.0)
[2018-09-21] MEDS: ONDANSETRON HCL 4 MG/2 ML VIAL IVP PRN ×2 (08:47→20:20)
[2018-09-21 08:53] VITALS: BP_SYST 134
[2018-09-21 11:41] VITALS: BP_SYST 143
[2018-09-21] MEDS: LISINOPRIL 5 MG TABLET PO SCH (13:33)
[2018-09-21] MEDS: PANTOPRAZOLE SODIUM 40 MG TAB PO SCH ×2 (13:34→20:20)
[2018-09-21] MEDS: CLOPIDOGREL BISULFATE 75 MG TABLET PO SCH (13:34)
[2018-09-21] MEDS: ASPIRIN 81 MG TAB.CHEW PO SCH (13:34)
[2018-09-21] MEDS: ENOXAPARIN SODIUM 100 MG/ML SYRINGE SUBCUT SCH (13:38)
[2018-09-21] MEDS ORDERED: LR 500 ML IV ONE (13:45)
[2018-09-21] MEDS ORDERED: METOCLOPRAMIDE HCL 10 MG/2 ML VIAL IVP ONE (14:00)
[2018-09-21] MEDS ORDERED: METOCLOPRAMIDE HCL 10 MG/2 ML VIAL ONE (14:00)
[2018-09-21 15:50] VITALS: BP_SYST 135
[2018-09-21] MEDS: METHIMAZOLE 5 MG TABLET PO SCH (16:10)
[2018-09-21 20:00] VITALS: BP_SYST 137
[2018-09-21] MEDS: ATORVASTATIN 20 MG TABLET PO SCH (20:20)
[2018-09-21 22:47] VITALS: BP_SYST 110
[2018-09-22] MEDS: ONDANSETRON HCL 4 MG/2 ML VIAL IVP PRN ×3 (06:20→22:00)
[2018-09-22] MEDS: traMADol HCL HCL 50 MG TABLET (ULTRAM) PO SCH ×3 (06:21→12:00)
[2018-09-22 06:27] LABS: CALCIUM 8.7 mg/dL (8.4-11.0); CREATININE 1.73 mg/dL (0.55-1.30); POTASSIUM 4.3 mmol/L (3.5-5.1)
[2018-09-22 07:12] LABS: HEMOGLOBIN 11.9 g/dL (14.0-18.0); MEAN CORPUSCULAR HEMOGLOBIN 29 pg (27-31); MEAN CORPUSCULAR HGB CONC 32 % (32-36); MEAN CORPUSCULAR VOLUME 91 fL (79.0-98.0); RED BLOOD CELL COUNT(AUTO) 4.08 MIL/uL (4.2-6.2); WHITE BLOOD COUNT (AUTO) 7.1 K/uL (4.8-10.8)
[2018-09-22 07:13] LABS: BASOPHILS % (AUTO) 0.4 % (0.0-2.0); EOSINOPHILS % (AUTO) 0.1 % (0.0-4.0); LYMPHOCYTES % (AUTO) 14.7 % (20.5-51.5); MONOCYTES # (AUTO) 0.5 K/uL (0.0-1.0); MONOCYTES % (AUTO) 7.3 % (1.7-9.3); NEUTROPHILS # (AUTO) 5.5 K/uL (1.8-7.7); NEUTROPHILS % (AUTO) 77.5 % (40.0-70.0); PLATELET COUNT (AUTO) 116 K/uL (130-430); RED CELL DISTRIBUTION WIDTH 15.4 % (9.0-15.0)
[2018-09-22 08:00] VITALS: BP_SYST 147
[2018-09-22] MEDS ORDERED: ENOXAPARIN SODIUM 100 MG/ML SYRINGE SUBCUT SCH (09:00)
[2018-09-22] MEDS: PANTOPRAZOLE SODIUM 40 MG TAB PO SCH ×2 (09:12→20:45)
[2018-09-22] MEDS: LISINOPRIL 5 MG TABLET PO SCH (09:13)
[2018-09-22] MEDS: CLOPIDOGREL BISULFATE 75 MG TABLET PO SCH (09:14)
[2018-09-22] MEDS: METHIMAZOLE 5 MG TABLET PO SCH (09:14)
[2018-09-22] MEDS: ASPIRIN 81 MG TAB.CHEW PO SCH (09:14)
[2018-09-22] MEDS: METOCLOPRAMIDE HCL 10 MG TABLET PO PRN ×2 (09:14→18:24)
[2018-09-22 11:20] VITALS: BP_SYST 133
[2018-09-22] MEDS ORDERED: DIATR MEGLU/DIATRIZ SOD 30 ML SOLUTION PO ONE (13:44)
[2018-09-22] MEDS: D5/0.45 NS 1,000 ML IV SCH (14:10)
[2018-09-22 15:14] VITALS: BP_SYST 133
[2018-09-22 20:16] VITALS: BP_SYST 120
[2018-09-22] MEDS: ATORVASTATIN 20 MG TABLET PO SCH (20:45)
[2018-09-22] MEDS: INSULIN REGULAR, HUMAN 100 UNITS/ML, 10 ML VIAL (novoLIN R) SUBCUT PRN (22:01)
[2018-09-23 02:55] VITALS: BP_SYST 111
[2018-09-23] MEDS: D5/0.45 NS 1,000 ML IV SCH ×3 (03:15→20:32)
[2018-09-23 07:39] LABS: CALCIUM 8.7 mg/dL (8.4-11.0); CREATININE 1.79 mg/dL (0.55-1.30); POTASSIUM 3.9 mmol/L (3.5-5.1)
[2018-09-23 07:58] LABS: BASOPHILS % (AUTO) 0.3 % (0.0-2.0); EOSINOPHILS % (AUTO) 0.2 % (0.0-4.0); HEMATOCRIT 37.4 % (36-54); HEMOGLOBIN 12.1 g/dL (14.0-18.0); LYMPHOCYTES # (AUTO) 1.2 K/uL (1.0-5.5); MEAN CORPUSCULAR HEMOGLOBIN 29 pg (27-31); MEAN CORPUSCULAR HGB CONC 32 % (32-36); MEAN CORPUSCULAR VOLUME 90 fL (79.0-98.0); MONOCYTES # (AUTO) 0.6 K/uL (0.0-1.0); MONOCYTES % (AUTO) 8.6 % (1.7-9.3); NEUTROPHILS # (AUTO) 5.4 K/uL (1.8-7.7); NEUTROPHILS % (AUTO) 74.9 % (40.0-70.0); PLATELET COUNT (AUTO) 116 K/uL (130-430); RED BLOOD CELL COUNT(AUTO) 4.16 MIL/uL (4.2-6.2); RED CELL DISTRIBUTION WIDTH 15.5 % (9.0-15.0); WHITE BLOOD COUNT (AUTO) 7.2 K/uL (4.8-10.8)
[2018-09-23 08:47] VITALS: BP_SYST 144
[2018-09-23] MEDS: PANTOPRAZOLE SODIUM 40 MG TAB PO SCH ×2 (08:57→20:28)
[2018-09-23] MEDS: ASPIRIN 81 MG TAB.CHEW PO SCH (08:58)
[2018-09-23] MEDS: METHIMAZOLE 5 MG TABLET PO SCH (08:58)
[2018-09-23] MEDS: CLOPIDOGREL BISULFATE 75 MG TABLET PO SCH (08:59)
[2018-09-23] MEDS: ENOXAPARIN SODIUM 40 MG/0.4 ML SYRINGE SUBCUT SCH (09:02)
[2018-09-23 11:28] VITALS: BP_SYST 137
[2018-09-23] MEDS: INSULIN REGULAR, HUMAN 100 UNITS/ML, 10 ML VIAL (novoLIN R) SUBCUT PRN (12:02)
[2018-09-23] MEDS ORDERED: metroNIDAZOLE 500 mg/NS 100 ML IV ONE (14:30)
[2018-09-23 15:26] VITALS: BP_SYST 131
[2018-09-23] MEDS: LEVOFLOXACIN 250 MG/D5W 50 ML IV SCH (15:41)
[2018-09-23] MEDS: ATORVASTATIN 20 MG TABLET PO SCH (20:28)
[2018-09-23] MEDS: ONDANSETRON HCL 4 MG/2 ML VIAL IVP PRN (20:30)
[2018-09-23] MEDS: metroNIDAZOLE 500 mg/NS 100 ML IV SCH (21:02)
[2018-09-24 00:22] VITALS: BP_SYST 133
[2018-09-24] MEDS: D5/0.45 NS 1,000 ML IV SCH ×2 (03:56→13:56)
[2018-09-24] MEDS: metroNIDAZOLE 500 mg/NS 100 ML IV SCH ×3 (05:09→21:14)
[2018-09-24 06:05] LABS: CALCIUM 8.6 mg/dL (8.4-11.0); CREATININE 1.49 mg/dL (0.55-1.30); POTASSIUM 3.7 mmol/L (3.5-5.1)
[2018-09-24 06:18] LABS: ALBUMIN 3.8 g/dL (3.4-4.8); TOTAL BILIRUBIN 1.3 mg/dL (0.0-1.0)
[2018-09-24 07:55] LABS: HEMATOCRIT 39.1 % (36-54); HEMOGLOBIN 12.5 g/dL (14.0-18.0); MEAN CORPUSCULAR HEMOGLOBIN 29 pg (27-31); MEAN CORPUSCULAR HGB CONC 32 % (32-36); MEAN CORPUSCULAR VOLUME 91 fL (79.0-98.0); PLATELET COUNT (AUTO) 117 K/uL (130-430); RED BLOOD CELL COUNT(AUTO) 4.28 MIL/uL (4.2-6.2); RED CELL DISTRIBUTION WIDTH 15.9 % (9.0-15.0); WHITE BLOOD COUNT (AUTO) 7.4 K/uL (4.8-10.8)
[2018-09-24 07:56] LABS: BASOPHILS % (AUTO) 0.4 % (0.0-2.0); EOSINOPHILS % (AUTO) 0.4 % (0.0-4.0); MONOCYTES # (AUTO) 0.5 K/uL (0.0-1.0); MONOCYTES % (AUTO) 7.3 % (1.7-9.3); NEUTROPHILS # (AUTO) 5.9 K/uL (1.8-7.7); NEUTROPHILS % (AUTO) 78.9 % (40.0-70.0)
[2018-09-24 08:00] VITALS: BP_SYST 139
[2018-09-24 08:11] LABS: HEPATITIS A AB, IgM Negative (Negative); HEPATITIS B CORE AB, IgM Negative (Negative); HEPATITIS B SURFACE AG Negative (Negative)
[2018-09-24] MEDS: CLOPIDOGREL BISULFATE 75 MG TABLET PO SCH (09:26)
[2018-09-24] MEDS: PANTOPRAZOLE SODIUM 40 MG TAB PO SCH ×2 (09:26→21:14)
[2018-09-24] MEDS: ONDANSETRON HCL 4 MG/2 ML VIAL IVP PRN ×2 (09:26→21:14)
[2018-09-24] MEDS: ASPIRIN 81 MG TAB.CHEW PO SCH (09:27)
[2018-09-24] MEDS: ENOXAPARIN SODIUM 40 MG/0.4 ML SYRINGE SUBCUT SCH (09:28)
[2018-09-24] MEDS: METHIMAZOLE 5 MG TABLET PO SCH (09:28)
[2018-09-24] MEDS: INSULIN REGULAR, HUMAN 100 UNITS/ML, 10 ML VIAL (novoLIN R) SUBCUT PRN ×3 (12:07→21:13)
[2018-09-24 12:35] VITALS: BP_SYST 128
[2018-09-24 16:10] VITALS: BP_SYST 134
[2018-09-24] MEDS: LEVOFLOXACIN 250 MG/D5W 50 ML IV SCH (16:43)
[2018-09-24 20:00] VITALS: BP_SYST 135
[2018-09-24] MEDS: ATORVASTATIN 20 MG TABLET PO SCH (21:14)
[2018-09-25] VITALS: BP_SYST 139
[2018-09-25] MEDS: D5/0.45 NS 1,000 ML IV SCH ×2 (01:52→16:43)
[2018-09-25] MEDS: metroNIDAZOLE 500 mg/NS 100 ML IV SCH ×3 (05:58→21:00)
[2018-09-25 07:20] LABS: ALBUMIN 3.6 g/dL (3.4-4.8); CALCIUM 8.7 mg/dL (8.4-11.0); CREATININE 1.25 mg/dL (0.55-1.30); POTASSIUM 3.9 mmol/L (3.5-5.1); TOTAL BILIRUBIN 1.1 mg/dL (0.0-1.0)
[2018-09-25 08:00] VITALS: BP_SYST 117
[2018-09-25] MEDS ORDERED: ACETAMINOPHEN 325 MG TABLET PO PRN (09:15)
[2018-09-25] MEDS ORDERED: BARIUM SULFATE 135 ML SUSP.RECON (E-Z-HD) PO ONE (11:34)
[2018-09-25] MEDS: PANTOPRAZOLE SODIUM 40 MG TAB PO SCH ×2 (12:40→20:59)
[2018-09-25] MEDS: ASPIRIN 81 MG TAB.CHEW PO SCH (12:40)
[2018-09-25] MEDS: METHIMAZOLE 5 MG TABLET PO SCH (12:41)
[2018-09-25 13:09] VITALS: BP_SYST 136
[2018-09-25] MEDS: LEVOFLOXACIN 250 MG/D5W 50 ML IV SCH (14:55)
[2018-09-25] MEDS: ONDANSETRON HCL 4 MG/2 ML VIAL IVP PRN (16:42)
[2018-09-25 16:48] VITALS: BP_SYST 139
[2018-09-25 20:00] VITALS: BP_SYST 133
[2018-09-25] MEDS: ATORVASTATIN 20 MG TABLET PO SCH (21:00)
[2018-09-26 00:26] VITALS: BP_SYST 127
[2018-09-26] MEDS: D5/0.45 NS 1,000 ML IV SCH ×2 (06:00→17:07)
[2018-09-26] MEDS: metroNIDAZOLE 500 mg/NS 100 ML IV SCH ×3 (06:02→21:00)
[2018-09-26] MEDS: ONDANSETRON HCL 4 MG/2 ML VIAL IVP PRN (06:03)
[2018-09-26 06:45] LABS: ALBUMIN 3.9 g/dL (3.4-4.8); CREATININE 1.21 mg/dL (0.55-1.30); POTASSIUM 4.1 mmol/L (3.5-5.1)
[2018-09-26 07:26] LABS: WHITE BLOOD COUNT (AUTO) 6.5 K/uL (4.8-10.8)
[2018-09-26 07:27] LABS: HEMATOCRIT 40.2 % (36-54); HEMOGLOBIN 13.1 g/dL (14.0-18.0); MEAN CORPUSCULAR HEMOGLOBIN 29 pg (27-31); MEAN CORPUSCULAR HGB CONC 33 % (32-36); MEAN CORPUSCULAR VOLUME 90 fL (79.0-98.0); PLATELET COUNT (AUTO) 124 K/uL (130-430); RED BLOOD CELL COUNT(AUTO) 4.46 MIL/uL (4.2-6.2)
[2018-09-26 07:28] LABS: BASOPHILS % (AUTO) 0.6 % (0.0-2.0); EOSINOPHILS # (AUTO) 0.1 K/uL (0.0-0.4); EOSINOPHILS % (AUTO) 0.8 % (0.0-4.0); LYMPHOCYTES % (AUTO) 14.9 % (20.5-51.5); MONOCYTES # (AUTO) 0.5 K/uL (0.0-1.0); MONOCYTES % (AUTO) 7.1 % (1.7-9.3); NEUTROPHILS % (AUTO) 76.6 % (40.0-70.0)
[2018-09-26 08:07] VITALS: BP_SYST 139
[2018-09-26] MEDS: ASPIRIN 81 MG TAB.CHEW PO SCH (08:43)
[2018-09-26] MEDS: PANTOPRAZOLE SODIUM 40 MG TAB PO SCH ×2 (08:43→20:56)
[2018-09-26] MEDS: METHIMAZOLE 5 MG TABLET PO SCH (08:44)
[2018-09-26] MEDS: METOCLOPRAMIDE HCL 10 MG TABLET PO PRN (08:49)
[2018-09-26 11:53] VITALS: BP_SYST 143
[2018-09-26] MEDS ORDERED: METOCLOPRAMIDE HCL 10 MG TABLET PO PRN (12:45)
[2018-09-26] MEDS: LEVOFLOXACIN 250 MG/D5W 50 ML IV SCH (14:08)
[2018-09-26 15:22] VITALS: BP_SYST 145
[2018-09-26 20:08] VITALS: BP_SYST 143
[2018-09-26] MEDS: ATORVASTATIN 20 MG TABLET PO SCH (20:57)
[2018-09-26] MEDS: INSULIN REGULAR, HUMAN 100 UNITS/ML, 10 ML VIAL (novoLIN R) SUBCUT PRN (20:59)
[2018-09-27] MEDS: MAG-AL HYDROX/SIMETH 30 ML UDC PO PRN (00:15)
[2018-09-27 01:31] VITALS: BP_SYST 132
[2018-09-27] MEDS: D5/0.45 NS 1,000 ML IV SCH (04:53)
[2018-09-27] MEDS: ONDANSETRON HCL 4 MG/2 ML VIAL IVP PRN ×2 (06:01→19:43)
[2018-09-27] MEDS: metroNIDAZOLE 500 mg/NS 100 ML IV SCH ×3 (06:01→21:32)
[2018-09-27 07:15] LABS: ALBUMIN 3.6 g/dL (3.4-4.8); CREATININE 1.26 mg/dL (0.55-1.30); POTASSIUM 4.1 mmol/L (3.5-5.1)
[2018-09-27 07:45] LABS: BASOPHILS % (AUTO) 0.3 % (0.0-2.0); EOSINOPHILS # (AUTO) 0.1 K/uL (0.0-0.4); EOSINOPHILS % (AUTO) 1.1 % (0.0-4.0); LYMPHOCYTES # (AUTO) 1.3 K/uL (1.0-5.5); LYMPHOCYTES % (AUTO) 19.7 % (20.5-51.5); MEAN CORPUSCULAR HEMOGLOBIN 29 pg (27-31); MEAN CORPUSCULAR HGB CONC 33 % (32-36); MEAN CORPUSCULAR VOLUME 90 fL (79.0-98.0); MONOCYTES # (AUTO) 0.5 K/uL (0.0-1.0); MONOCYTES % (AUTO) 8.1 % (1.7-9.3); NEUTROPHILS # (AUTO) 4.6 K/uL (1.8-7.7); NEUTROPHILS % (AUTO) 70.8 % (40.0-70.0); PLATELET COUNT (AUTO) 114 K/uL (130-430); RED BLOOD CELL COUNT(AUTO) 4.43 MIL/uL (4.2-6.2); RED CELL DISTRIBUTION WIDTH 15.9 % (9.0-15.0); WHITE BLOOD COUNT (AUTO) 6.5 K/uL (4.8-10.8)
[2018-09-27 08:11] VITALS: BP_SYST 136
[2018-09-27] MEDS: PANTOPRAZOLE SODIUM 40 MG TAB PO SCH ×2 (09:03→21:32)
[2018-09-27] MEDS: ASPIRIN 81 MG TAB.CHEW PO SCH (09:03)
[2018-09-27] MEDS: METHIMAZOLE 5 MG TABLET PO SCH (09:04)
[2018-09-27] MEDS: INSULIN REGULAR, HUMAN 100 UNITS/ML, 10 ML VIAL (novoLIN R) SUBCUT PRN (11:27)
[2018-09-27 11:30] VITALS: BP_SYST 144
[2018-09-27] MEDS: LEVOFLOXACIN 250 MG/D5W 50 ML IV SCH (13:40)
[2018-09-27 15:10] VITALS: BP_SYST 127
[2018-09-27 19:00] VITALS: BP_SYST 142
[2018-09-27 20:00] VITALS: BP_SYST 142
[2018-09-27] MEDS: ATORVASTATIN 20 MG TABLET PO SCH (21:32)
[2018-09-28] VITALS (8 sets, daily range): BP systolic 125–142
[2018-09-28] MEDS: ONDANSETRON HCL 4 MG/2 ML VIAL IVP PRN ×4 (00:01→15:06)
[2018-09-28] MEDS: D5/0.45 NS 1,000 ML IV SCH ×2 (05:46→13:08)
[2018-09-28] MEDS: metroNIDAZOLE 500 mg/NS 100 ML IV SCH ×3 (05:47→20:44)
[2018-09-28 07:05] LABS: HEMATOCRIT 38.7 % (36-54); HEMOGLOBIN 12.8 g/dL (14.0-18.0); MEAN CORPUSCULAR HEMOGLOBIN 30 pg (27-31); MEAN CORPUSCULAR HGB CONC 33 % (32-36); MEAN CORPUSCULAR VOLUME 90 fL (79.0-98.0); RED BLOOD CELL COUNT(AUTO) 4.28 MIL/uL (4.2-6.2); WHITE BLOOD COUNT (AUTO) 6.5 K/uL (4.8-10.8)
[2018-09-28 07:06] LABS: BASOPHILS % (AUTO) 0.5 % (0.0-2.0); EOSINOPHILS # (AUTO) 0.1 K/uL (0.0-0.4); EOSINOPHILS % (AUTO) 1.5 % (0.0-4.0); LYMPHOCYTES # (AUTO) 1.2 K/uL (1.0-5.5); LYMPHOCYTES % (AUTO) 18.2 % (20.5-51.5); MONOCYTES # (AUTO) 0.4 K/uL (0.0-1.0); MONOCYTES % (AUTO) 6.7 % (1.7-9.3); NEUTROPHILS # (AUTO) 4.8 K/uL (1.8-7.7); NEUTROPHILS % (AUTO) 73.1 % (40.0-70.0); PLATELET COUNT (AUTO) 103 K/uL (130-430)
[2018-09-28 07:23] LABS: INR 1.4 (0.80-1.20); PROTHROMBIN TIME 13.8 SECS (9.5-12.5)
[2018-09-28 08:15] LABS: ALBUMIN 3.6 g/dL (3.4-4.8); CALCIUM 8.7 mg/dL (8.4-11.0); CREATININE 1.29 mg/dL (0.55-1.30); POTASSIUM 3.6 mmol/L (3.5-5.1); TOTAL BILIRUBIN 1.1 mg/dL (0.0-1.0)
[2018-09-28] MEDS: ASPIRIN 81 MG TAB.CHEW PO SCH (09:00)
[2018-09-28] MEDS: METHIMAZOLE 5 MG TABLET PO SCH ×2 (09:00→16:52)
[2018-09-28] MEDS: PANTOPRAZOLE SODIUM 40 MG TAB PO SCH ×2 (09:00→20:43)
[2018-09-28] MEDS ORDERED: SIMETHICONE 40 MG/0.6 ML ML ONE (13:03)
[2018-09-28] MEDS ORDERED: MIDAZOLAM HCL 5 MG/5 ML VIAL ONE (13:04)
[2018-09-28] MEDS: LEVOFLOXACIN 250 MG/D5W 50 ML IV SCH (15:06)
[2018-09-28] MEDS: MIDAZOLAM HCL 5 MG/5 ML VIAL ONE ×2 (15:25→15:30)
[2018-09-28] MEDS: fentaNYL CITRATE/PF 100 MCG/2 ML AMP ONE ×2 (15:27→15:32)
[2018-09-28] MEDS ORDERED: IPRATROPIUM/ALBUTEROL SULFATE 3 ML AMPUL.NEB (DUONEB) INH PRN (17:15)
[2018-09-28] MEDS ORDERED: IPRATROPIUM/ALBUTEROL SULFATE 3 ML AMPUL.NEB (DUONEB) INH ONE (17:15)
[2018-09-28] MEDS: ATORVASTATIN 20 MG TABLET PO SCH (20:43)
[2018-09-28] MEDS: INSULIN REGULAR, HUMAN 100 UNITS/ML, 10 ML VIAL (novoLIN R) SUBCUT PRN (20:58)
[2018-09-28] MEDS: IPRATROPIUM/ALBUTEROL SULFATE 3 ML AMPUL.NEB (DUONEB) INH SCH (23:22)
[2018-09-29] MEDS: IPRATROPIUM/ALBUTEROL SULFATE 3 ML AMPUL.NEB (DUONEB) INH SCH ×4 (03:58→15:35)
[2018-09-29] MEDS: metroNIDAZOLE 500 mg/NS 100 ML IV SCH ×2 (05:47→13:10)
[2018-09-29 06:56] LABS: HEMATOCRIT 36.8 % (36-54); HEMOGLOBIN 11.9 g/dL (14.0-18.0); LYMPHOCYTES % (AUTO) 16.2 % (20.5-51.5); MEAN CORPUSCULAR HEMOGLOBIN 30 pg (27-31); MEAN CORPUSCULAR HGB CONC 33 % (32-36); MEAN CORPUSCULAR VOLUME 91 fL (79.0-98.0); NEUTROPHILS % (AUTO) 73.3 % (40.0-70.0); PLATELET COUNT (AUTO) 91 K/uL (130-430); RED BLOOD CELL COUNT(AUTO) 4.05 MIL/uL (4.2-6.2); RED CELL DISTRIBUTION WIDTH 126.7 % (9.0-15.0); WHITE BLOOD COUNT (AUTO) 5.3 K/uL (4.8-10.8)
[2018-09-29 06:57] LABS: BASOPHILS # (AUTO) 0.1 K/uL (0.0-0.2); BASOPHILS % (AUTO) 1.1 % (0.0-2.0); EOSINOPHILS # (AUTO) 0.1 K/uL (0.0-0.4); EOSINOPHILS % (AUTO) 2.8 % (0.0-4.0); LYMPHOCYTES # (AUTO) 0.9 K/uL (1.0-5.5); MONOCYTES # (AUTO) 0.4 K/uL (0.0-1.0); MONOCYTES % (AUTO) 6.6 % (1.7-9.3); NEUTROPHILS # (AUTO) 3.9 K/uL (1.8-7.7)
[2018-09-29 07:09] LABS: ALBUMIN 3.4 g/dL (3.4-4.8); CALCIUM 8.4 mg/dL (8.4-11.0); CREATININE 1.28 mg/dL (0.55-1.30); POTASSIUM 3.5 mmol/L (3.5-5.1); TOTAL BILIRUBIN 0.7 mg/dL (0.0-1.0)
[2018-09-29 08:00] VITALS: BP_SYST 133
[2018-09-29] MEDS: PANTOPRAZOLE SODIUM 40 MG TAB PO SCH (08:26)
[2018-09-29] MEDS: ASPIRIN 81 MG TAB.CHEW PO SCH (08:26)
[2018-09-29] MEDS: METHIMAZOLE 5 MG TABLET PO SCH (08:27)
[2018-09-29] MEDS: D5/0.45 NS 1,000 ML IV SCH (08:33)
[2018-09-29 11:29] VITALS: BP_SYST 138
[2018-09-29] MEDS: LEVOFLOXACIN 250 MG/D5W 50 ML IV SCH (14:31)
[2018-09-29 15:54] VITALS: BP_SYST 113
[2018-09-29 17:43] VITALS: BP_SYST 136
[2018-09-29] MEDS ORDERED: LEVO750T45 PO (17:47)
[2018-09-29] MEDS ORDERED: IPRA4AER INH (17:47)
[2018-09-29] MEDS ORDERED: METO-290 PO (17:48)
[2018-09-29] MEDS ORDERED: PRO40 PO (17:49)
== END 2018-09-29 19:20 | disposition home or self-care (01) | DRG 190 ==
LOC: SED 11:19 → STU 14:18 → SMU 09-26 12:47
PROVIDERS: ADMIT Internal Medicine; ATTEND Internal Medicine
PROC: 0DB68ZX Excision of Stomach, Via Natural or Artificial Opening Endoscopic, Diagnostic (ICD-10-PCS; principal; 2018-09-28 15:00)
DX: I21.4 Non-ST elevation (NSTEMI) myocardial infarction (principal); N17.0 Acute kidney failure with tubular necrosis; I50.21 Acute systolic (congestive) heart failure; K81.0 Acute cholecystitis; R16.2 Hepatomegaly with splenomegaly, not elsewhere classified; E05.90 Thyrotoxicosis, unspecified without thyrotoxic crisis or storm; E11.9 Type 2 diabetes mellitus without complications; D64.9 Anemia, unspecified; E66.9 Obesity, unspecified; E78.5 Hyperlipidemia, unspecified; I25.10 Atherosclerotic heart disease of native coronary artery without angina pectoris; E86.9 Volume depletion, unspecified; I11.0 Hypertensive heart disease with heart failure; I45.2 Bifascicular block; K29.70 Gastritis, unspecified, without bleeding; Z96.651 Presence of right artificial knee joint; R07.89 Other chest pain; K74.69 Other cirrhosis of liver; K82.8 Other specified diseases of gallbladder; E78.00 Pure hypercholesterolemia, unspecified; Z87.891 Personal history of nicotine dependence; Z95.3 Presence of xenogenic heart valve; Z95.5 Presence of coronary angioplasty implant and graft; Z79.899 Other long term (current) drug therapy; Z79.82 Long term (current) use of aspirin; I25.2 Old myocardial infarction; Z68.34 Body mass index [BMI] 34.0-34.9, adult
CPT/HCPCS: 36415; 43239; 71045; 74018; 74240-TC; 76700-TC; 78226; 80048; 80053; 80061; 80074; 81000-TC; 82150-TC; 82550-TC; 82962; 83036; 83690-TC; 83735-TC; 83880; 84439; 84443-TC; 84484; 85025; 85610-TC; 85730-TC; 87040-TC; 87081; 88305; 88312; 88313; 93005; 93306; 94640; 94760; 99285; A9537; G0378; J1650; J1815; J1940; J1956; J2250; J2405; J2765; J3010; J3490; J7120; J7620; J8597; Q0162; Q9964